=== PATIENT | male | born 1995 | race Two or more races ===

== ENCOUNTER 2024-05-24 10:30 | Outpatient (AMB) | payer OTHER, MEDICAID, SELFPAY ==
--- NOTE | 2024-05-24 18:30 | ACNOTE_ITS ---
Allergies/Meds Allergies & Medications Allergies No Known Allergies Allergy (Verified 02/10/24 11:10) Medication Reconciliation No Known Home Medications 05/31/24 [History Confirmed 05/31/24] MA Intake Visit Data Collection New Patient or Established: Established Patient (seen at [facility] within 3 years) Seen by Clinical Staff ONLY (RN/DENILSON): No Reason for Visit:: Telephone visit for annual labs and fatigue/libido disorder Pain Present Currently: No Pain scale:: 0 Pain Scale Used: Cross-Kilpatrick/Numerical PCP or OBGYN visit in last 3 months: No Hx Now: No Do You Feel Safe at Home: Yes Authorities Contacted: N/A Smoking Status Smoking Status: Never smoker For Televisit only Telemed Video/Phone Visit: Yes Verbal consent obtained for Telemed visit?: Yes Telemed Video/Phone visit w/Clinical Staff: 11-20 min Immunization / Flu Flu Vaccine in the Last 12 Months: Yes Flu Vaccine Exclusion Criteria: Already Received Past Medical History Social History SMOKING STATUS: Smoking status: Never smoker Patient Portal Questionaires Social History Tobacco History Smoking Status: Never smoker Domestic Abuse History Do You Feel Safe at Home: Yes Review of Systems Report any current symptoms Only answer those that you have currently: General Complaints difficulty sleeping: No fatigue: Yes lack of energy: Yes night sweats: No weight loss: No Genital (General) changes in sex drive: Yes genital sores/bumps/rash: No Genital or Urinary System (Male) erectile dysfunction: No other: Yes (Low libido) Past Medical History Past Medical History Have you ever been diagnosed with any of the following: History of Present Illness HPI Narrative 28 year old male with no significant past medical history is presenting via telehealth visit to the residency clinic for new symptoms of fatigue and low libido, along with a request to complete annual labs. Patient has not had blood work completed for over a year and is requesting a full panel (CBC, CMP, Lipid Panel, A1c) for health equity. Patient also would like a STI panel including HSV 1/2 as he has 2 sexual partners in the past year. Patient states that he uses safe-sex practice in the way on condoms during sexual activity. Patient does state that he has noticed low libido recently and new onset fatigue. He has not been eating well as of late; relying on fast food for many of his meals during the week. The patient also has been having less time and energy to go to the gym like he used. Otherwise no other concerning symptoms reported; patient denies any fever/chills, weight loss, night sweats. chest pain, cough, shortness of breath, palpitations, GI symptoms, erectile dysfunction, dysuria or hematuria. Review of Systems Constitutional Constitutional: Denies difficulty sleeping, Reports fatigue, Reports lethargy, Denies night sweats and Denies weight loss Genitourinary Genitourinary: Reports change in libido, Denies erectile dysfunction, Denies genital lesions and Reports other (Low libido) Psychiatric Psychiatric: Reports change in libido Endocrine Endocrine: Reports change in libido and Reports fatigue Objective/Exam Narrative Physical exam: Telehealth visit completed; limited exam General: Patient sounded pleasant and was answering questions appropriately No concerning psychiatric exam findings during history taking Assessment & Plan Diagnosis / Problem List (1) Low libido: Status: Acute Assessment & Plan: Patient states that he notices low libido recently This is a new symptom which he has not experienced in the past Denies having erectile dysfunction but does state that he has also felt more fatigued that usual Denies any psyciatric conditions in the past or any causative medications Denies any drug or alcohol use Plan: Ordered Free Testosterone and Total testosterone (2) Fatigue: Status: Acute Qualifiers: Fatigue type: unspecified Qualified Code(s): R53.83 - Other fatigue Assessment & Plan: New onset fatigue Patient denies having any other concerning symptoms as noted in HPI Patient has been eating poorly recently with most meals being fast food Has been going to the gym less often due to new symptom Plan: Ordered the above labs; will follow-up in 1 week Counselled on slowl progression back to the gym and healthier food choices (3) Annual physical exam: Status: Acute Assessment & Plan: Patient presenting via tele health visit for annual exam along with complete blood work Patient has not seen PCP in at least one year Some new symptoms which the patient would like to access along with STI check due to having a couple sexual partners in the past year Plan: Labs sent out; CBC, CMP, Mag, Ca, Ph, Lipid panel, TSH, Vit D and B12, STI panel (urine chlamydia/gonorrohea, HIV, syphillis and HSV 1/2) Follow up with results in the clinic in 1-2 weeks Additional Assessment Internal Medicine Attending Note: Case discussed with and agree with note and management plan of Resident Physician as per Resident's Note above. Issues of concern for present visit are as follows: New patient, telehealth visit. Health history reviewed. Will do routine labs, STI testing per patient request. Patient noting fatigue and decreased libido, we will also check testosterone levels. Chemo Hui MD Physician Billing New Patient New Patient: E/M Level 2-CPT 10144 Office Procedures [facility] Level of Care Nursing/Assessment Patient Status: Established Patient Nursing Assessment/Reassessment: Medication Reconciliation and Update PMH in EMR Coordination of Care: Complex Care and Chronic Disease 1-5, Consent,records obtained, informed consent, Education Simp Pt/Fam, Lab and Imaging orders and Staff clarify orders Established Patient Charge Established Patient Point Assignment: 85 Established Patient Point Charge: Level 3 (80-115) Telehealth Telemed Phone/Video with patient at home & Dr,PA,MACHINE SORTER: Yes
== END 2024-05-24 11:30 | disposition home or self-care (01) ==
LOC: HODAHC 06-28 05:29
PROVIDERS: Supervising Provider Internal Medicine
DX: R68.82 Decreased libido (principal); R53.83 Other fatigue
CPT/HCPCS: 99212; 99213; G0463

== ENCOUNTER → 2024-05-26 | Outpatient (CLI) | payer OTHER, MEDICAID, SELFPAY ==
[2024-05-26 13:35] LABS: Basophils # (Auto) 0.1 Thou/mm3 (0.0-0.2); Basophils % (Auto) 1 % (0-2.5); Eosinophils # (Auto) 0.1 Thou/mm3 (0.0-0.5); Eosinophils % (Auto) 1 % (0-10); Hematocrit 44.8 % (41.0-53.0); Hemoglobin 15.1 g/dL (13.5-16.0); Immature Granulocytes % (Auto) 0 % (0-0); Immature Granulocytes Auto 0.01 Thou/mm3 (0.00-0.00); Lymphocytes # (Auto) 1.7 Thou/mm3 (1.0-4.8); Lymphocytes % (Auto) 37 % (10-50); Mean Corpuscular HGB Conc 33.7 g/dl (31.0-37.0); Mean Corpuscular Hemoglobin 29.1 pg (25.0-35.0); Mean Corpuscular Volume 86 fL (80-100); Monocytes # (Auto) 0.3 Thou/mm3 (0.0-0.8); Monocytes % (Auto) 6 % (0-12); Neutrophils # (Auto) 2.6 Thou/mm3 (1.8-7.7); Neutrophils % (Auto) 55 % (37-80); Nucleated Red Blood Cell % 0 /100 WBC (0); Platelet Count 190 Thou/mm3 (140-440); RDW Standard Deviation 39.2 fL (35.1-43.9); Red Blood Count 5.19 Miln/mm3 (4.50-5.90); White Blood Count 4.7 Thou/mm3 (3.8-10.6)
[2024-05-26 13:59] LABS: Vitamin B12 899 pg/mL (211-911); Vitamin D 25 Hydroxy Total 23.9 ng/mL (7.3-40.2)
[2024-05-26 14:04] LABS: Alanine Aminotransferase 19 U/L (10-49); Albumin, Serum 4.9 gm/dL (3.5-5.0); Albumin/Globulin Ratio 2.1 (1.2-2.2); Alkaline Phosphatase 49 U/L (46-116); Anion Gap 7 (7-16); Aspartate Amino Transferase 20 U/L (0-34); BUN/Creatinine Ratio 13 Ratio (12-20); Bilirubin,Total 1.2 mg/dL (0.3-1.2); Blood Urea Nitrogen 15 mg/dL (9-23); Calcium 9.9 mg/dL (8.3-10.6); Calcium (Corrected) 9.9 mg/dL (8.5-10.1); Chloride 101 mMol/L (98-107); Creatinine (Component) 1.2 mg/dL (0.6-1.3); Globulin 2.3 gm/dL (2.3-3.5); Glucose 79 mg/dL (74-106); Osmolality,Calculated 279 (275-295); Phosphorous 3.9 mg/dL (2.4-5.1); Potassium 4.3 mMol/L (3.4-5.1); Sodium 140 mMol/L (136-145); Thyroid Stimulating Hormone 2.94 uIU/mL (0.55-4.78); Total Protein 7.2 gm/dL (5.7-8.2); eGFR > 60 See Note
[2024-05-26 14:06] LABS: Syphilis Nonreactive (Nonreactive)
[2024-05-26 15:27] LABS: Cardiac Risk Estimate 2.6 RATIO (4.0-6.7); Cholesterol 172 mg/dL (132-200); HDL Cholesterol 67 mg/dL (40-60); LDL Cholesterol,Calculated 94 mg/dL (0-130); Triglycerides 53 mg/dL (30-150)
[2024-05-26 16:19] LABS: Glucose Estimated Average 88 mg/dL (80-131); Hemoglobin A1C 4.7 % Hgb (4.8-6.0)
[2024-06-02 06:58] LABS: Testosterone, Free,Dialysis 120.4 pg/mL (35.0-155.0); Testosterone, Total, Dialysis 753 ng/dL (250-1100)
== END | disposition home or self-care (01) ==
PROVIDERS: PCP Internal Medicine
DX: Z00.00 Encounter for general adult medical examination without abnormal findings (principal); R53.83 Other fatigue
CPT/HCPCS: 36415; 80053; 80061; 82306; 82607; 83036; 83735; 84100; 84402; 84403; 84443; 85025; 86780

== ENCOUNTER 2024-06-09 12:13 | Outpatient (AMB) | payer OTHER, MEDICAID, SELFPAY ==
--- NOTE | 2024-06-09 11:57 | PD.RESCLINIC ---
Allergies/Meds Allergies & Medications Allergies No Known Allergies Allergy (Verified 02/10/24 11:10) MA Intake Visit Data Collection PCP or OBGYN visit in last 3 months: Yes Smoking Status Smoking Status: Never smoker Immunization / Flu Flu Vaccine in the Last 12 Months: Yes Flu Vaccine Exclusion Criteria: No Exclusion Criteria Past Medical History Social History SMOKING STATUS: Smoking status: Never smoker Patient Portal Questionaires Social History Tobacco History Smoking Status: Never smoker Review of Systems Report any current symptoms Only answer those that you have currently: Past Medical History Past Medical History Have you ever been diagnosed with any of the following: History of Present Illness HPI Narrative 28 year old male with no significant past medical history is presenting via telehealth visit to the residency clinic for new symptoms of fatigue and low libido, along with a request to complete annual labs. Patient has not had blood work completed for over a year and is requesting a full panel (CBC, CMP, Lipid Panel, A1c) for health equity. Patient also would like a STI panel including HSV 1/2 as he has 2 sexual partners in the past year. Patient states that he uses safe-sex practice in the way on condoms during sexual activity. Patient does state that he has noticed low libido recently and new onset fatigue. He has not been eating well as of late; relying on fast food for many of his meals during the week. The patient also has been having less time and energy to go to the gym like he used. Otherwise no other concerning symptoms reported; patient denies any fever/chills, weight loss, night sweats. chest pain, cough, shortness of breath, palpitations, GI symptoms, erectile dysfunction, dysuria or hematuria. 06/09/2024: The patient reported that he has been having squeezing abdominal pain that aggravates after eating any shorts of food that is a/w weight loss for past 3 years. Denies any decreased appetite, nausea or vomiting, diarrhea or constipation, but admitted urge to urinate and has to urinate at least 10-15 times a day. Also wanted to get STD screening with chlamydia and gonorrhea test which were not done on previous visit. Review of Systems Review of Systems Systems Reviewed: All systems reviewed, normal except as documented Objective/Exam Narrative Physical exam: General: no acute distress HEENT: Atraumatic, PERRLA CVS: Normal S1S2, No murmur or rubs Chest: CTAB Abd: NT/ND, BS + EXT: NO edema Psych: appropriate mood and affect Assessment & Plan Diagnosis / Problem List (1) H. pylori infection: Status: Acute Assessment & Plan: The patient reported that he has been having squeezing abdominal pain that aggravates after eating any shorts of food that is a/w weight loss for past 3 years. Denies any decreased appetite, nausea or vomiting, diarrhea or constipation. Plan: -Urea breath test positive for H. Pylori -Stool antigen for H. Pylori pending -Started on Amoxicillin 1000mg BID for 14 days -Clarithromycin 500mg BID for 14 days -Pantoprazole 40mg BID for 30 days -Sucralfate 1g TID before meals (2) Gastritis: Status: Acute Assessment & Plan: The patient reported that he has been having squeezing abdominal pain that aggravates after eating any shorts of food that is a/w weight loss for past 3 years. Denies any decreased appetite, nausea or vomiting, diarrhea or constipation. Urea breath test for H. Pylori positive. Plan: -As mentioned above -Hyosciamine 0.125mg TID (3) Screening for STD (sexually transmitted disease): Status: Acute Assessment & Plan: STD screening with chlamydia and gonorrhea test which were not done on previous visit. Plan: -Ordered serology for Chlamydia and Gonorrhea (4) Fatigue: Status: Acute Qualifiers: Fatigue type: unspecified Qualified Code(s): R53.83 - Other fatigue Assessment & Plan: Likely 2/2 1 and 2 as above Plan: -Reassured that would get better after treating H. Pylori (5) Low libido: Status: Acute Assessment & Plan: Testosterone level WNL Plan: -Reassurance Plan The patient care was discussed with my attending MD Raheel Moy MD PGY2 Orders: Orders Urea Breath Test 06/09/24 K29.70 - Gastritis, unspecified, without bleeding Helicobacter pylori Ag, Stool* 06/09/24 K29.70 - Gastritis, unspecified, without bleeding Chlamydia/GC/TV - PCR 06/09/24 Z11.3 - Encounter for screening for infections with a predominantly sexual mode of transmission Additional Assessment Internal Medicine Attending Note: Case discussed with and agree with note and management plan of Resident Physician as per Resident's Note above. Issues of concern for present visit are as follows: Follow-up visit. Abdominal pain after eating, associated with weight loss. Urea breath test was positive for Helicobacter pylori. We will treat empirically for Helicobacter pylori. Patient requesting screening for STDs which will be ordered. Chemo Hui MD Physician Billing Established Patient Established Patient: E/M Level 3-CPT 73593
== END 2024-06-09 12:30 | disposition home or self-care (01) ==
LOC: HODAHC 12:13
PROVIDERS: PCP Student in an Organized Health Care Education/Training Program; Referring Provider Student in an Organized Health Care Education/Training Program; Supervising Provider Internal Medicine; Visit Provider Student in an Organized Health Care Education/Training Program
DX: K29.70 Gastritis, unspecified, without bleeding (principal); B96.81 Helicobacter pylori [H. pylori] as the cause of diseases classified elsewhere; R53.83 Other fatigue; R68.82 Decreased libido
CPT/HCPCS: 99213; G0463

== ENCOUNTER → 2024-06-09 | Outpatient (CLI) | payer OTHER, MEDICAID, SELFPAY ==
[2024-06-09 13:42] LABS: Urea Breath Test Positive (Negative)
[2024-06-09 16:05] LABS: Chlamydia trachomatis PCR Negative (Not Detect); Neisseria Gonorrhoeae DNA PCR Negative (Not Detect); Trichomonas Negative (Negative)
== END | disposition home or self-care (01) ==
PROVIDERS: PCP Internal Medicine; Referring Provider Student in an Organized Health Care Education/Training Program; Visit Provider Student in an Organized Health Care Education/Training Program
DX: K29.70 Gastritis, unspecified, without bleeding (principal); Z11.3 Encounter for screening for infections with a predominantly sexual mode of transmission
CPT/HCPCS: 83013; 83014; 87491; 87591; 87661

== ENCOUNTER 2024-08-16 11:21 | Outpatient (AMB) | payer OTHER, MEDICAID, SELFPAY ==
--- NOTE | 2024-08-16 11:56 | ACNOTE_ITS ---
Allergies/Meds Allergies & Medications Allergies No Known Allergies Allergy (Verified 07/26/24 10:01) DENILSON Intake Visit Data Collection New Patient or Established: Established Patient (seen at [facility] within 3 years) Seen by Clinical Staff ONLY (RN/DENILSON): Yes Pain Present Currently: No Pain scale:: 0 Pain Scale Used: Cross-Kilpatrick/Numerical [employer] Systems Analyst Required: No PCP or OBGYN visit in last 3 months: No Do You Feel Safe at Home: Yes Authorities Contacted: N/A Smoking Status Smoking Status: Never smoker For Televisit only Telemed Video/Phone Visit: Yes Verbal consent obtained for Telemed visit?: Yes Verbal Consent witness name: edelmira cuellar ma Immunization / Flu Flu Vaccine in the Last 12 Months: Yes Flu Vaccine Exclusion Criteria: Already Received Past Medical History Social History SMOKING STATUS: Smoking status: Never smoker Patient Portal Questionaires Social History Tobacco History Smoking Status: Never smoker Domestic Abuse History Do You Feel Safe at Home: Yes Review of Systems Report any current symptoms Only answer those that you have currently: Past Medical History Past Medical History Have you ever been diagnosed with any of the following: History of Present Illness HPI Narrative 28 year old male with no significant past medical history is presenting via telehealth visit to the residency clinic for new symptoms of fatigue and low libido, along with a request to complete annual labs. Patient has not had blood work completed for over a year and is requesting a full panel (CBC, CMP, Lipid Panel, A1c) for health equity. Patient also would like a STI panel including HSV 1/2 as he has 2 sexual partners in the past year. Patient states that he uses safe-sex practice in the way on condoms during sexual activity. Patient does state that he has noticed low libido recently and new onset fatigue. He has not been eating well as of late; relying on fast food for many of his meals during the week. The patient also has been having less time and energy to go to the gym like he used. Otherwise no other concerning symptoms reported; patient denies any fever/chills, weight loss, night sweats. chest pain, cough, shortness of breath, palpitations, GI symptoms, erectile dysfunction, dysuria or hematuria. 06/09/2024: The patient reported that he has been having squeezing abdominal pain that aggravates after eating any shorts of food that is a/w weight loss for past 3 years. Denies any decreased appetite, nausea or vomiting, diarrhea or constipation, but admitted urge to urinate and has to urinate at least 10-15 times a day. Also wanted to get STD screening with chlamydia and gonorrhea test which were not done on previous visit. 08/16/2024: A televisit was conducted as the patient was complaining of persistent epigastric abdominal pain. He reported that he has this pain for few months, he was tested positive for H. pylori and was treated with triple antibiotics. His symptoms was relieved until June 2024 when he started to experience similar symptoms. At that time he was in [place] visiting family in which he saw a doctor in [place] in which he recommended to start the patient on quadruple therapy of tetracycline, Flagyl, simethicone, pantoprazole. 2 days after he started these medications his epigastric pain continued to worsen and which he was unable to continue taking the medication. He reported associated nausea and early satiety. He denied any food relation to the pain. On questioning he reported that he has been eating spicy food even though he is trying to cut back on spices. On further questioning he mentioned that he has been having some episodes of diarrhea and greasy stool. He denied hard stool however experience some episodes of constipation in which he believes it is secondary to his hemorrhoids. No history of travel abroad. Review of Systems Review of Systems Systems Reviewed: All systems reviewed, normal except as documented Objective/Exam Narrative Physical exam: N/A, televisit. Assessment & Plan Diagnosis / Problem List (1) Diarrhea: Status: Acute Qualifiers: Diarrhea type: unspecified type Qualified Code(s): R19.7 - Diarrhea, unspecified Assessment & Plan: Patient reported some episodes of diarrhea in which it is greasy. Denied any relation to food. No family history of similar symptoms. The symptoms has been going on on and off for few months. Patient has recently treated for H. pylori. Plan: ? stool analysis including parasite and ova, Giardia, stool culture, and WBCs ? Stool calprotectin ?Patient was concerned for possible SIBO, however we might do hydrogen breath test if his stool study were inconclusive with persistent symptoms. (2) Gastritis: Status: Acute Qualifiers: Chronicity: chronic Gastritis bleeding: presence of bleeding unspecified Gastritis type: unspecified gastritis Qualified Code(s): K29.50 - Unspecified chronic gastritis without bleeding Assessment & Plan: Last time he used PPI or antibiotics was in 27 July 2024 Plan: ? Stop using any PPIs, bismuth, antibiotics for at least 1 month then we will repeat urea breath test on 26 Aug 2024. (3) Dyspepsia and disorder of function of stomach: Status: Acute Assessment & Plan: Abdominal pain located epigastric area, early satiety, patient reported that he has been drinking excessive amount of caffeinated drinks, and high-protein meals. Plan: ? Start small frequent meals ? Increase the portion of carbohydrates in your daily meal intake at this time until we finalize the H. pylori workup ? Avoid excessive caffeine, chocolates, fatty meals, high-protein meals at this time. Orders: Orders Calprotectin, Stool* 08/16/24 Giardia Antigen, EIA, Stool* 08/16/24 K29.70 - Gastritis, unspecified, without bleeding, R19.7 - Diarrhea, unspecified, R53.83 - Other fatigue Stool for WBCs 08/16/24 K29.70 - Gastritis, unspecified, without bleeding, R19.7 - Diarrhea, unspecified Stool Culture 08/16/24 K29.70 - Gastritis, unspecified, without bleeding, R19.7 - Diarrhea, unspecified, R53.83 - Other fatigue Ova & Parasites, Conc, Smear* 08/16/24 K29.70 - Gastritis, unspecified, without bleeding, R19.7 - Diarrhea, unspecified Additional Assessment Internal Medicine Attending Note: Case discussed with and agree with note and management plan of Resident Physician as per Resident's Note above. Issues of concern for present visit are as follows: Follow-up visit completed via telehealth. Complaining of persistent epigastric abdominal pain. Previously tested positive for Helicobacter pylori, was treated with appropriate regimen. Symptoms relieved until June 2024 when he started experience similar symptoms. Was seen by physician out of town, started on quadruple therapy of tetracycline, metronidazole, simethicone, pantoprazole. He was only able to take this for 2 days due to worsening pain and associated nausea. Noting some early satiety. Has also had some episodes of diarrhea and greasy stools. We will check fecal ova and parasites, Giardia, culture, WBCs, calprotectin. Hold off on PPIs for now to repeat urea breath test. Diet modification to small frequent meals, avoid caffeine, chocolate, spicy foods, high acid foods. May need referral for endoscopy. Chemo Hui MD Physician Billing Established Patient Established Patient: E/M Level 2-CPT 94704 Office Procedures [facility] Level of Care Nursing/Assessment Patient Status: Established Patient Nursing Assessment/Reassessment: Medication Reconciliation and Update PMH in EMR Coordination of Care: Complex Care and Chronic Disease 1-5, Consent,records obtained, informed consent, Education Simp Pt/Fam and Staff clarify orders Established Patient Charge Established Patient Point Assignment: 70 Telehealth Telemed Phone/Video with patient at home & Dr,PA,REGISTERED APPRAISER: Yes
== END 2024-08-16 16:09 | disposition home or self-care (01) ==
LOC: HODAHC 11:21
PROVIDERS: Supervising Provider Internal Medicine; Visit Provider Student in an Organized Health Care Education/Training Program
DX: K29.70 Gastritis, unspecified, without bleeding (principal)
CPT/HCPCS: 99212; G0463

== ENCOUNTER → 2024-08-30 | Outpatient (CLI) | payer OTHER, SELFPAY ==
[2024-08-30 11:33] LABS: Urea Breath Test Negative (Negative)
[2024-09-05 07:08] LABS: Calprotectin, Stool* 25 mcg/g
== END | disposition home or self-care (01) ==
LOC: COPL 10:36
PROVIDERS: PCP Internal Medicine; Referring Provider Internal Medicine; Visit Provider Internal Medicine
DX: K31.9 Disease of stomach and duodenum, unspecified (principal); R10.13 Epigastric pain; A04.8 Other specified bacterial intestinal infections; K29.70 Gastritis, unspecified, without bleeding; R19.7 Diarrhea, unspecified; R53.83 Other fatigue
CPT/HCPCS: 83013; 83014; 83993

== ENCOUNTER → 2024-09-01 | Outpatient (CLI) | payer OTHER, SELFPAY ==
[2024-09-12 07:27] LABS: Calprotectin, Stool* 15 mcg/g
== END | disposition home or self-care (01) ==
LOC: COPL 13:50 → SLDO 13:51
PROVIDERS: PCP Student in an Organized Health Care Education/Training Program; Referring Provider Student in an Organized Health Care Education/Training Program; Visit Provider Student in an Organized Health Care Education/Training Program
DX: K29.70 Gastritis, unspecified, without bleeding (principal); R19.7 Diarrhea, unspecified; A04.8 Other specified bacterial intestinal infections; R53.83 Other fatigue
CPT/HCPCS: 83993; 87015; 87045; 87046; 87177; 87209; 87899

== ENCOUNTER → 2024-09-07 | Outpatient (CLI) | payer OTHER, SELFPAY ==
[2024-09-07 17:08] LABS: Collection Type, Urine Clean Catch
[2024-09-07 17:33] LABS: Basophils % (Auto) 1 % (0-2.5); Eosinophils # (Auto) 0.1 Thou/mm3 (0.0-0.5); Eosinophils % (Auto) 2 % (0-10); Hematocrit 43.5 % (41.0-53.0); Immature Granulocytes % (Auto) 0 % (0-0); Immature Granulocytes Auto 0.01 Thou/mm3 (0.00-0.00); Lymphocytes # (Auto) 1.7 Thou/mm3 (1.0-4.8); Lymphocytes % (Auto) 35 % (10-50); Mean Corpuscular HGB Conc 34.5 g/dl (31.0-37.0); Mean Corpuscular Hemoglobin 30.1 pg (25.0-35.0); Mean Corpuscular Volume 87 fL (80-100); Monocytes # (Auto) 0.3 Thou/mm3 (0.0-0.8); Monocytes % (Auto) 6 % (0-12); Neutrophils # (Auto) 2.7 Thou/mm3 (1.8-7.7); Neutrophils % (Auto) 56 % (37-80); Nucleated Red Blood Cell % 0 /100 WBC (0); Platelet Count 180 Thou/mm3 (140-440); RDW Standard Deviation 39.7 fL (35.1-43.9); Red Blood Count 4.99 Miln/mm3 (4.50-5.90); White Blood Count 4.8 Thou/mm3 (3.8-10.6)
[2024-09-07 17:40] LABS: Bacteria,Urine Rare; Bilirubin,Urine Negative (Negative); Blood,Urine Negative (Negative); Clarity,Urine Clear (Clear/Hazy); Color,Urine Yellow (Lt Yel-Yel); Glucose, Urine Negative (Negative); Hyaline Casts,Urine < 1 /hpf (0-1); Ketones,Urine Negative (Negative); Leukocyte Esterase,Urine Positive (Negative); Nitrite,Urine Negative (Negative); PH,Urine 6.5 (5.0-7.0); Protein,Urine Trace (Neg - Trace); RBC,Urine 3 /hpf (0-3); Specific Gravity,Urine 1.031 (1.001-1.035); Squamous Epithelial Cell,Urine 2 /hpf (0-5); Urobilinogen,Urine Negative mg/dL (0.0-1.0); WBC,Urine 4 /hpf (0-5)
[2024-09-07 17:50] LABS: Alanine Aminotransferase 16 U/L (10-49); Albumin, Serum 4.8 gm/dL (3.5-5.0); Albumin/Globulin Ratio 2.1 (1.2-2.2); Alkaline Phosphatase 51 U/L (46-116); Amylase 63 U/L (30-118); Anion Gap 9 (7-16); Aspartate Amino Transferase 17 U/L (0-34); BUN/Creatinine Ratio 14 Ratio (12-20); Bilirubin,Total 0.8 mg/dL (0.3-1.2); Blood Urea Nitrogen 15 mg/dL (9-23); Calcium 9.1 mg/dL (8.3-10.6); Calcium (Corrected) 9.1 mg/dL (8.5-10.1); Carbon Dioxide 31.5 mMol/L (20.0-31.0); Chloride 102 mMol/L (98-107); Creatinine (Component) 1.1 mg/dL (0.6-1.3); Globulin 2.3 gm/dL (2.3-3.5); Glucose 88 mg/dL (74-106); Lipase 36 U/L (12-53); Osmolality,Calculated 282 (275-295); Potassium 4.2 mMol/L (3.4-5.1); Sodium 142 mMol/L (136-145); Total Protein 7.1 gm/dL (5.7-8.2); eGFR > 60 See Note
== END | disposition home or self-care (01) ==
LOC: COPL 16:41
PROVIDERS: PCP Internal Medicine; Referring Provider Specialist; Visit Provider Specialist
DX: R10.9 Unspecified abdominal pain (principal)
CPT/HCPCS: 36415; 80053; 81001; 82150; 83690; 85025

== ENCOUNTER → 2024-09-08 | Outpatient (CLI) | payer OTHER, SELFPAY | END | disposition home or self-care (01) | LOC: SLDO 12:54 | PROVIDERS: PCP Specialist; Referring Provider Specialist; Visit Provider Specialist | DX: R10.9 Unspecified abdominal pain (principal) | CPT/HCPCS: 87086 ==

== ENCOUNTER → 2024-09-14 | Outpatient (CLI) | payer OTHER, SELFPAY ==
--- NOTE | 2024-09-15 | XR_ITS ---
Examination: Abdomen sonogram, Limited Date and time of exam: September 15, 2024 1616 hours INDICATIONS: Epigastric pain beginning 3 days ago Technique: Real-time littlejohn scale transabdominal sonographic images of the upper abdomen obtained. Findings: Normal gallbladder No common bile duct 0.3 cm Pancreatic head 2.3 cm Liver 14 cm fatty infiltration Normal hepatopedal portal venous flow Patent IVC IMPRESSION: Normal gallbladder Fatty liver
== END | disposition home or self-care (01) ==
PROVIDERS: PCP Specialist; Referring Provider Specialist; Visit Provider Specialist
DX: K76.0 Fatty (change of) liver, not elsewhere classified (principal)
CPT/HCPCS: 76705

== ENCOUNTER → 2024-09-20 | Outpatient (CLI) | payer OTHER, SELFPAY ==
[2024-09-20 15:10] LABS: Collection Type, Urine Clean Catch; Squamous Epithelial Cell,Urine 0 /hpf (0-5)
[2024-09-20 16:38] LABS: Bilirubin,Urine Negative (Negative); Blood,Urine Negative (Negative); Clarity,Urine Clear (Clear/Hazy); Color,Urine Lt-Yellow (Lt Yel-Yel); Glucose, Urine Negative (Negative); Ketones,Urine Negative (Negative); Leukocyte Esterase,Urine Negative (Negative); Nitrite,Urine Negative (Negative); PH,Urine 6.5 (5.0-7.0); Protein,Urine Negative (Neg - Trace); RBC,Urine 4 /hpf (0-3); Specific Gravity,Urine 1.027 (1.001-1.035); Urobilinogen,Urine Negative mg/dL (0.0-1.0); WBC,Urine 4 /hpf (0-5)
== END | disposition home or self-care (01) ==
LOC: SLDO 14:34
DX: R31.9 Hematuria, unspecified (principal)
CPT/HCPCS: 81001; 87086

== ENCOUNTER → 2024-09-27 | Outpatient (CLI) | payer OTHER, SELFPAY ==
[2024-09-27 15:34] LABS: Urea Breath Test Negative (Negative)
== END | disposition home or self-care (01) ==
LOC: COPL 11:07
PROVIDERS: PCP Internal Medicine; Referring Provider Specialist; Visit Provider Specialist
DX: R10.11 Right upper quadrant pain (principal)
CPT/HCPCS: 83013; 83014

== ENCOUNTER 2024-10-10 11:55 | Day surgery (SDC) | payer OTHER, SELFPAY ==
[2024-10-10] VITALS (11 sets, daily range): BP systolic 101–129; BP diastolic 52–88; PULSE 54–104; RESP 12–17; TEMP 36.7–36.9; O2SAT 95–100; BMI 19.8
[2024-10-10] MEDS: DiphenhydrAMINE INJ 50 MG/ML VIAL 25 MG IVP (13:37)
[2024-10-10] MEDS: BENZOCAINE 20% (Hurricaine) SPRAY 1 DOSE TOP (13:37)
[2024-10-10] MEDS: SODIUM CHLORIDE 0.9% 500 ML 500 ML 20 ML IV (13:37)
[2024-10-10] MEDS: fentaNYL CIT INJ 50 mCg/ML AMP 2ML (ASD USE ONLY) IVP (13:44)
[2024-10-10] MEDS: MIDAZOLAM INJ 1 MG/ML VIAL 2 ML (ASD USE ONLY) 2 MG IVP (13:44)
== END 2024-10-10 15:10 | disposition home or self-care (01) ==
PROVIDERS: PCP Internal Medicine; Referring Provider Specialist; Visit Provider Specialist
PROC: (CPT 43239; principal; 2024-10-10 12:15)
DX: K20.90 Esophagitis, unspecified without bleeding (principal); K29.70 Gastritis, unspecified, without bleeding; K29.50 Unspecified chronic gastritis without bleeding; K31.89 Other diseases of stomach and duodenum
CPT/HCPCS: 43239; J1200; J2250; J3010; J7999; A9270

== ENCOUNTER 2025-04-05 13:47 | Outpatient (AMB) | payer OTHER, SELFPAY ==
--- NOTE | 2025-04-05 13:55 | PD.RESCLINIC ---
Allergies/Meds Allergies & Medications Allergies No Known Allergies Allergy (Verified 04/05/25 13:55) Medication Reconciliation No Known Home Medications 10/10/24 [History Confirmed 04/05/25] MA Intake Visit Data Collection New Patient or Established: Established Patient (seen at [facility] within 3 years) Seen by Clinical Staff ONLY (RN/DENILSON): No Pain Present Currently: No Pain scale:: 0 Pain Scale Used: Cross-Kilpatrick/Numerical Supervisor Meter Shop Required: No PCP or OBGYN visit in last 3 months: No Do You Feel Safe at Home: Yes Authorities Contacted: N/A Smoking Status Smoking Status: Never smoker For Televisit only Telemed Video/Phone Visit: Yes Verbal consent obtained for Telemed visit?: Yes Telemed Video/Phone visit w/Clinical Staff: 21-30 min Immunization / Flu Flu Vaccine in the Last 12 Months: Yes Flu Vaccine Exclusion Criteria: Already Received Past Medical History Past Medical History NEUROLOGIC: Negative Neurological Disorders or Seizures CARDIAC: Negative Cardiac Disorders or Congestive Heart Failure RESPIRATORY: Negative Chronic Obstructive Pulmonary Disease (COPD) GASTROINTESTINAL: Positive Gastrointestinal Disorders (ABDOMINAL PAIN) GENITOURINARY: Negative Genitourinary Disorders or Renal Disease ENDOCRINE: Negative Endocrine Disorders, Diabetes Mellitus Type 1 or Diabetes Mellitus Type 2 HEMATOLOGIC: Negative Blood Disorders OTHER HISTORY: Negative Autoimmune Disease, Blood Transfusions or Anesthesia Reactions (NA) Social History SMOKING STATUS: Smoking status: Never smoker ALCOHOL: Alcohol Intake: Never HOUSING: Housing: House Patient Portal Questionaires PHQ-9 PHQ-2 Over the last 2 weeks, how often have you been bothered by any of the following problems? 1. Little interest or pleasure in doing things: not at all 2. Feeling down, depressed, or hopeless: not at all Total score: 0 Social History Living Situation History Housing: House Tobacco History Smoking Status: Never smoker Alcohol History Alcohol Intake: Never Domestic Abuse History Do You Feel Safe at Home: Yes Review of Systems Report any current symptoms Only answer those that you have currently: Past Medical History Past Medical History Have you ever been diagnosed with any of the following: Neurological Problems Seizures: No Cardiology Problems Congestive Heart Failure: No Respiratory Problems Chronic Obstructive Pulmonary Disease (COPD): No Genital/Urinary Problems Renal Disease: No Endocrine Problems Diabetes Mellitus Type 1: No Diabetes Mellitus Type 2: No Other Problems Autoimmune Disease: No Blood Transfusions: No Anesthesia Reactions: No (NA) History of Present Illness HPI Narrative 28 year old male with no significant past medical history is presenting via telehealth visit to the residency clinic for new symptoms of fatigue and low libido, along with a request to complete annual labs. Patient has not had blood work completed for over a year and is requesting a full panel (CBC, CMP, Lipid Panel, A1c) for health equity. Patient also would like a STI panel including HSV 1/2 as he has 2 sexual partners in the past year. Patient states that he uses safe-sex practice in the way on condoms during sexual activity. Patient does state that he has noticed low libido recently and new onset fatigue. He has not been eating well as of late; relying on fast food for many of his meals during the week. The patient also has been having less time and energy to go to the gym like he used. Otherwise no other concerning symptoms reported; patient denies any fever/chills, weight loss, night sweats. chest pain, cough, shortness of breath, palpitations, GI symptoms, erectile dysfunction, dysuria or hematuria. 06/09/2024: The patient reported that he has been having squeezing abdominal pain that aggravates after eating any shorts of food that is a/w weight loss for past 3 years. Denies any decreased appetite, nausea or vomiting, diarrhea or constipation, but admitted urge to urinate and has to urinate at least 10-15 times a day. Also wanted to get STD screening with chlamydia and gonorrhea test which were not done on previous visit. 08/16/2024: A televisit was conducted as the patient was complaining of persistent epigastric abdominal pain. He reported that he has this pain for few months, he was tested positive for H. pylori and was treated with triple antibiotics. His symptoms was relieved until June 2024 when he started to experience similar symptoms. At that time he was in [place] [facility] which he saw a doctor in [place] in which he recommended to start the patient on quadruple therapy of tetracycline, Flagyl, simethicone, pantoprazole. 2 days after he started these medications his epigastric pain continued to worsen and which he was unable to continue taking the medication. He reported associated nausea and early satiety. He denied any food relation to the pain. On questioning he reported that he has been eating spicy food even though he is trying to cut back on spices. On further questioning he mentioned that he has been having some episodes of diarrhea and greasy stool. He denied hard stool however experience some episodes of constipation in which he believes it is secondary to his hemorrhoids. No history of travel abroad. 09/20/24: Tele-visit. Patient here fo polyuria. Reports ongoing polyuria over the last few week, nocturia (several episodes at night). Denies UTI symptoms such as dysuria, penile discharge, nausea, dark urine. Denies systemic symptoms such as fever, chills, night sweats, chest pain, sob, nausea or vomiting, or abdominal pain, or blood in stool. Low suspicion for STD based on history, negative work-up 08/2024. He has previously reported weight loss and currently following GI, on treatment for H. pylori. Denies worsening weight loss. No history of UTI in the past. UA and urine cultures were orders. UA showed RBC 4. WBC 4, negative LE and Nitrates, otherwise WNL. A1c 4.7. Ucx showed no growth. No antibiotics were given at this time as patient remains asymptomatic, low suspicion for UTI on UA. Chantelleenlly following with urology and GI. Recommended return to office if symptoms persist or worsen. Recommended repeat UA in 3 months. 04/05/2025: Tele-visit. Patient with no active complaints at this time. He does endorse new sexual partners recently and would like to have STD screening. He denies any penile discharge, fevers, or genital rashes at this time. He has lost some weight. CBC, CMP, STD panel ordered, RPR, HIV and Hep panel ordered. Can follow up in the office if symptoms start to arise or to discuss results of these labs. Objective/Exam Narrative Physical exam: Tele visit Assessment & Plan Diagnosis / Problem List (1) Screening for STD (sexually transmitted disease): Status: Acute Plan: CBC, CMP, STD panel ordered, RPR, HIV and Hep panel ordered Orders: Orders CBC 04/05/25 R30.0 - Dysuria, R53.83 - Other fatigue, Z11.3 - Encounter for screening for infections with a predominantly sexual mode of transmission Comprehensive Metabolic Panel 04/05/25 R30.0 - Dysuria, R53.83 - Other fatigue, Z11.3 - Encounter for screening for infections with a predominantly sexual mode of transmission HIV (1&2) Antibody Rapid 04/05/25 R30.0 - Dysuria, R53.83 - Other fatigue, Z11.3 - Encounter for screening for infections with a predominantly sexual mode of transmission Syphilis 04/05/25 R30.0 - Dysuria, R53.83 - Other fatigue, R63.4 - Abnormal weight loss, Z11.3 - Encounter for screening for infections with a predominantly sexual mode of transmission Chlamydia/GC/TV - PCR 04/05/25 R30.0 - Dysuria, R53.83 - Other fatigue, Z11.3 - Encounter for screening for infections with a predominantly sexual mode of transmission Hepatitis Acute Panel 04/05/25 R30.0 - Dysuria, R53.83 - Other fatigue, Z11.3 - Encounter for screening for infections with a predominantly sexual mode of transmission Office Procedures [facility] Level of Care Nursing/Assessment Patient Status: Established Patient Nursing Assessment/Reassessment: Medication Reconciliation, Update PMH in EMR and Vital Signs Coordination of Care: Complex Care/Chronic Disease 5 or more, Consent,records obtained, informed consent, Lab and Imaging orders, Results/Orders obtained and Staff clarify orders Established Patient Charge Established Patient Point Assignment: 100 Telehealth Telemed Phone/Video with patient at home & ,PA,CHIEF BUSINESS OFFICER: Yes TB Screening LTBI Screening: Has patient traveled, was born, or resided for at least 1 month, or frequent border crossing into a country with an elevated TB rate: No Immunosuppression, current or planned (HIV, organ transplant, treated with biologic agents, steroids, or other immunosuppression medication): No Close contact to someone with infectious TB disease during lifetime: No Homelessness or incarceration, current or past: No TB testing indicated at this time (at least 1 yes above): No
== END 2025-04-05 14:42 | disposition home or self-care (01) ==
LOC: HODAHC 13:47
PROVIDERS: Supervising Provider Internal Medicine; Visit Provider Student in an Organized Health Care Education/Training Program
DX: Z11.3 Encounter for screening for infections with a predominantly sexual mode of transmission (principal)
CPT/HCPCS: 99212; G0463

== ENCOUNTER → 2025-04-07 | Outpatient (CLI) | payer OTHER, SELFPAY ==
[2025-04-07 16:26] LABS: Basophils # (Auto) 0.1 Thou/mm3 (0.0-0.2); Basophils % (Auto) 1 % (0-2.5); Eosinophils # (Auto) 0.1 Thou/mm3 (0.0-0.5); Eosinophils % (Auto) 2 % (0-10); Hematocrit 43.2 % (41.0-53.0); Hemoglobin 14.7 g/dL (13.5-16.0); Immature Granulocytes Auto 0.02 Thou/mm3 (0.00-0.00); Lymphocytes # (Auto) 1.7 Thou/mm3 (1.0-4.8); Lymphocytes % (Auto) 37 % (10-50); Mean Corpuscular HGB Conc 34.0 g/dl (31.0-37.0); Mean Corpuscular Hemoglobin 29.6 pg (25.0-35.0); Mean Corpuscular Volume 87 fL (80-100); Monocytes # (Auto) 0.3 Thou/mm3 (0.0-0.8); Monocytes % (Auto) 7 % (0-12); Neutrophils # (Auto) 2.3 Thou/mm3 (1.8-7.7); Neutrophils % (Auto) 52 % (37-80); Nucleated Red Blood Cell # 0.00 Thou/mm3 (0.00-0.00); Nucleated Red Blood Cell % 0 /100 WBC (0); Platelet Count 192 Thou/mm3 (140-440); RDW Standard Deviation 39.8 fL (35.1-43.9); Red Blood Count 4.96 Miln/mm3 (4.50-5.90); White Blood Count 4.5 Thou/mm3 (3.8-10.6)
[2025-04-07 16:46] LABS: Alanine Aminotransferase 16 U/L (10-49); Albumin, Serum 4.8 gm/dL (3.5-5.0); Albumin/Globulin Ratio 1.9 (1.2-2.2); Alkaline Phosphatase 43 U/L (46-116); Anion Gap 10 (7-16); Aspartate Amino Transferase 17 U/L (0-34); BUN/Creatinine Ratio 9 Ratio (12-20); Bilirubin,Total 1.3 mg/dL (0.3-1.2); Blood Urea Nitrogen 12 mg/dL (9-23); Calcium 9.5 mg/dL (8.3-10.6); Calcium (Corrected) 9.5 mg/dL (8.5-10.1); Carbon Dioxide 30.1 mMol/L (20.0-31.0); Chloride 103 mMol/L (98-107); Creatinine (Component) 1.4 mg/dL (0.6-1.3); Globulin 2.5 gm/dL (2.3-3.5); Glucose 82 mg/dL (74-106); Osmolality,Calculated 283 (275-295); Potassium 4.0 mMol/L (3.4-5.1); Sodium 143 mMol/L (136-145); Total Protein 7.3 gm/dL (5.7-8.2); eGFR > 60 See Note
[2025-04-07 17:01] LABS: Syphilis Nonreactive (Nonreactive)
[2025-04-07 22:48] LABS: Hepatitis A Antibody IgM Non Reactive (Non React); Hepatitis B Core Antibody IgM Non Reactive (Non React); Hepatitis B Surface Antigen Non Reactive (Non React); Hepatitis C Antibody Non Reactive (Non React)
[2025-04-08 07:47] LABS: Chlamydia trachomatis PCR Negative (Not Detect); Neisseria Gonorrhoeae DNA PCR Negative (Not Detect); Trichomonas Negative (Negative)
== END | disposition home or self-care (01) ==
LOC: COPL 13:58
PROVIDERS: PCP Student in an Organized Health Care Education/Training Program; Referring Provider Student in an Organized Health Care Education/Training Program; Visit Provider Student in an Organized Health Care Education/Training Program
DX: R30.0 Dysuria (principal); R63.4 Abnormal weight loss; R53.83 Other fatigue; Z11.3 Encounter for screening for infections with a predominantly sexual mode of transmission
CPT/HCPCS: 36415; 80053; 80074; 85025; 86780; 87491; 87591; 87661